=== PATIENT | male | born 1945 | race Caucasian/White ===

== ENCOUNTER 2022-09-11 11:08 | Outpatient (REF) | payer MEDICARE, SELFPAY ==
--- NOTE | ~2022-09-11 | XR_ITS ---
EXAMINATION: XR SINUSES CLINICAL INFORMATION: Sinusitis COMPARISON: None TECHNIQUE: 6 views of the sinuses were obtained. FINDINGS: The paranasal sinuses appear well-aerated and clear. No definite mucosal thickening and no visible polypoid mass or air-fluid levels. No sinus expansion or bony sclerosis or visible destructive process. Nasopharyngeal airway appears patent on the lateral view. XR/XR sinus min 3V IMPRESSION: Sinuses clear.
== END 2022-09-11 11:09 | disposition home or self-care (01) ==
LOC: HO.XRAY 11:08
PROVIDERS: PCP Internal Medicine; Visit Provider Otolaryngology
DX: J32.9 Chronic sinusitis, unspecified (principal)
CPT/HCPCS: 70220

== ENCOUNTER 2022-11-06 12:04 | Outpatient (REF) | payer MEDICARE, SELFPAY | END 2022-11-06 12:05 | disposition home or self-care (01) | LOC: HO.10HDLNP 12:04 | PROVIDERS: Visit Provider Otolaryngology | DX: B37.9 Candidiasis, unspecified (principal) | CPT/HCPCS: 87102; 87106 ==